=== PATIENT | female | born 1950 | race Caucasian/White ===

== ENCOUNTER → 2018-05-23 08:41 | Outpatient (CLI) | payer MEDICARE, BC ==
[2015-03-31 09:59] VITALS: BMI 27.1
[~2018-05-23 08:41] MED LIST: BENTYL 20 MG TA20 MG PO; CARAFATE1 G PO; CELEBREX200 MG PO; KLONOPIN0.5 MG PO; LINZESS145 MCG PO; MIRALAX17 GM PO; MUCINEX600 MG PO; PERCOCET 10/3251 TA1 PO; PHENERGAN25 MG RC; PLAQUENIL200 MG PO; POTASSIUM99 M1 PO; PREMARIN0.625 MG PO; STERAPRED 5MG 125 MG PO; SYNTHROID150 MCG PO; VALIUM 2 MG TAB2 MG PO; VITAMIN B-1000 MCG/M IM; VITAMIN D250000 UNIT PO; ZANTAC150 MG PO; ZOFRAN ODT4 MG/UDTAB PO; ZOLOFT25 MG; [UNRECOGNIZED DRUG - OTHER] PO
== END | disposition home or self-care (01) ==
LOC: D.RAD 08:41
DX: R93.8 Abnormal findings on diagnostic imaging of other specified body structures (principal)

== ENCOUNTER → 2021-01-24 07:15 | Outpatient (CLI) | payer MEDICARE, BC ==
[2015-03-31 09:59] VITALS: BMI 27.1
[2021-01-25 10:12] LABS: HEPATITIS C ANTIBODY <0.1 S/CO RAT (0.0-0.9)
== END | disposition home or self-care (01) ==
LOC: D.US 07:15
PROVIDERS: ATTEND Internal Medicine Gastroenterology
DX: R11.10 Vomiting, unspecified (principal)